=== PATIENT | male | born 1955 | race American Indian/Alaskan Native ===

== ENCOUNTER 2019-05-10 14:59 | Emergency (ER) | payer MEDICARE ==
[2019-05-10 15:36] LABS: Basophils % (Auto) 0.7 % (0.0-1.8); Eosinophils % (Auto) 0.6 % (0.0-4.3); Hematocrit 38.8 % (35.5-45.6); Hemoglobin 13.3 gm/dl (11.8-15.2); Lymphocytes # (Auto) 1.2 K/mm3 (1.2-5.4); Lymphocytes % (Auto) 21.6 % (13.4-35.0); Mean Corpuscular HGB Conc 34 % (32-34); Mean Corpuscular Volume 91 fl (84-94); Monocytes # (Auto) 0.4 K/mm3 (0.0-0.8); Monocytes % (Auto) 7.1 % (0.0-7.3); Platelet Count 261 K/mm3 (140-440); Red Blood Count 4.29 M/mm3 (3.65-5.03); Red Cell Distribution Width 14.6 % (13.2-15.2)
[2019-05-10 15:51] LABS: BUN/Creatinine Ratio 10; Blood Urea Nitrogen 11 mg/dL (9-20); Calcium 9.6 mg/dL (8.4-10.2); Hemolysis Index 9
--- NOTE | 2019-05-10 16:27 | Event Note ---
ED Screening Note Date of service: 05/10/19 Time: 15:21 ED Screening Note: 63 y/o male comes in for hearing voices telling him to harm This initial assessment/diagnostic orders/clinical plan/treatment(s) is/are subject to change based on patients health status, clinical progression and re-assessment by fellow clinical providers in the ED. Further treatment and workup at subsequent clinical providers discretion. Patient/guardian urged not to elope from the ED as their condition may be serious if not clinically assessed and managed. Initial orders include:
--- NOTE | 2019-05-10 17:25 | Emergency Department Report ---
ED Psych HPI - General Chief Complaint: Psych Stated Complaint: EVALUATION Time Seen by Provider: 05/10/19 15:46 Source: patient Mode of arrival: Ambulatory Limitations: No Limitations - History of Present Illness Initial Comments: 63-year-old male with a past medical history hypertension and schizophrenia presents to the hospital complains of psychosis and suicidal ideation with plan and attempt. Patient has been noncompliant with his psychiatric medication for at least 2 months due to failure to follow up. He says that yesterday he tried to drown himself in a pool but he floated to the top. He also has a plan to overdose currently. He reports a suicide attempt at age 36 when he attempted to jump off a bridge. He denies any physical complaints at this time. - Related Data Home Medications Medication Instructions Recorded Confirmed Last Taken Benztropine [Cogentin] 0.5 mg PO BID 02/20/16 02/20/16 Unknown [place] Carbonate 0 mg PO TID 02/20/16 02/20/16 Unknown Oxycodone HCl [OxyCONTIN ER TAB] 15 mg PO Q12HR 02/20/16 02/20/16 Unknown Quetiapine Fumarate [Seroquel] 100 mg PO QHS 02/20/16 02/20/16 Unknown amLODIPine [Norvasc] 10 mg PO QDAY 02/20/16 02/20/16 Unknown hydroCHLOROthiazide [HCTZ] 12.5 mg PO QDAY 02/20/16 02/20/16 Unknown Allergies Allergy/AdvReac Type Severity Reaction Status Date / Time No Known Allergies Allergy Unverified 02/19/16 23:12 ED Review of Systems ROS: Stated complaint: EVALUATION Other details as noted in HPI Comment: All other systems reviewed and negative ED Past Medical Hx - Past Medical History Previous Medical History?: Yes Hx Hypertension: Yes Hx Psychiatric Treatment: Yes (Schizophrenia) - Surgical History Past Surgical History?: Yes Additional Surgical History: "head surgery" - Social History Smoking Status: Never Smoker Substance Use Type: None - Medications Home Medications: Home Medications Medication Instructions Recorded Confirmed Last Taken Type Benztropine [Cogentin] 0.5 mg PO BID 02/20/16 02/20/16 Unknown History [place] Carbonate 0 mg PO TID 02/20/16 02/20/16 Unknown History Oxycodone HCl [OxyCONTIN ER TAB] 15 mg PO Q12HR 02/20/16 02/20/16 Unknown History Quetiapine Fumarate [Seroquel] 100 mg PO QHS 02/20/16 02/20/16 Unknown History amLODIPine [Norvasc] 10 mg PO QDAY 02/20/16 02/20/16 Unknown History hydroCHLOROthiazide [HCTZ] 12.5 mg PO QDAY 02/20/16 02/20/16 Unknown History ED Physical Exam - General Limitations: No Limitations - Other Other exam information: General: No limitations, patient is alert in no acute distress Head exam: Atraumatic, normocephalic Eyes exam: Normal appearance ENT: Moist mucous membrane Neck exam: Normal inspection, full range of motion, no meningismus nontender Respiratory exam: Clear to auscultation bilateral, no wheezes, rales, crackles Cardiovascular: Normal rate and rhythm, normal heart sounds Abdomen: Soft, nondistended, and nontender, with normal bowel sounds, no rebound, or guarding Extremity: Full range of motion normal inspection no deformity Back: Normal Inspection, full range of motion, no tenderness Neurologic: Alert, oriented x3, cranial nerves intact, no motor or sensory deficit Psychiatric: normal affect, normal mood Skin: Warm, dry, intact ED Course Vital Signs 05/10/19 05/10/19 15:07 17:26 Temperature 98.2 F 97.9 F Pulse Rate 102 H 71 Respiratory 13 18 Rate Blood Pressure 157/76 155/94 [Left] O2 Sat by Pulse 96 98 Oximetry ED Medical Decision Making - Lab Data Result diagrams: 05/10/19 15:19 05/10/19 15:19 Lab Results 05/10/19 05/10/19 05/10/19 Range/Units 15:19 15:19 15:19 WBC (4.5-11.0) K/mm3 RBC (3.65-5.03) M/mm3 Hgb (11.8-15.2) gm/dl Hct (35.5-45.6) % MCV (84-94) fl MCH (28-32) pg MCHC (32-34) % RDW (13.2-15.2) % Plt Count (140-440) K/mm3 Lymph % (Auto) (13.4-35.0) % [place] % (Auto) (0.0-7.3) % Eos % (Auto) (0.0-4.3) % Baso % (Auto) (0.0-1.8) % Lymph # (1.2-5.4) K/mm3 [place] # (0.0-0.8) K/mm3 Eos # (0.0-0.4) K/mm3 Baso # (0.0-0.1) K/mm3 Seg Neutrophils % (40.0-70.0) % Seg Neutrophils # (1.8-7.7) K/mm3 Sodium 141 (137-145) mmol/L Potassium 4.4 (3.6-5.0) mmol/L Chloride 102.3 (98-107) mmol/L Carbon Dioxide 24 (22-30) mmol/L Anion Gap 19 mmol/L BUN 11 (9-20) mg/dL Creatinine 1.1 (0.8-1.5) mg/dL Estimated GFR > 60 ml/min BUN/Creatinine Ratio 10 % Glucose 144 H (75-100) mg/dL Calcium 9.6 (8.4-10.2) mg/dL Urine Color (Yellow) Urine Turbidity (Clear) Urine pH (5.0-7.0) Ur Specific [place] (1.003-1.030) Urine Protein (Negative) mg/dL Urine Glucose (UA) (Negative) mg/dL Urine Ketones (Negative) mg/dL Urine Blood (Negative) Urine Nitrite (Negative) Urine Bilirubin (Negative) Urine Urobilinogen (<2.0) mg/dL Ur Leukocyte Esterase (Negative) Urine WBC (Auto) (0.0-6.0) /HPF Urine RBC (Auto) (0.0-6.0) /HPF Salicylates < 0.3 L (2.8-20.0) mg/dL Urine Opiates Screen Urine Methadone Screen Acetaminophen < 5.0 L (10.0-30.0) ug/mL Ur Barbiturates Screen Ur Phencyclidine Scrn Ur Amphetamines Screen U Benzodiazepines Scrn Urine Cocaine Screen U Marijuana (THC) Screen Drugs of Abuse Note Plasma/Serum Alcohol (0-0.07) % 05/10/19 05/10/19 05/10/19 Range/Units 15:19 15:19 Unknown WBC 5.7 (4.5-11.0) K/mm3 RBC 4.29 (3.65-5.03) M/mm3 Hgb 13.3 (11.8-15.2) gm/dl Hct 38.8 (35.5-45.6) % MCV 91 (84-94) fl MCH 31 (28-32) pg MCHC 34 (32-34) % RDW 14.6 (13.2-15.2) % Plt Count 261 (140-440) K/mm3 Lymph % (Auto) 21.6 (13.4-35.0) % [place] % (Auto) 7.1 (0.0-7.3) % Eos % (Auto) 0.6 (0.0-4.3) % Baso % (Auto) 0.7 (0.0-1.8) % Lymph # 1.2 (1.2-5.4) K/mm3 [place] # 0.4 (0.0-0.8) K/mm3 Eos # 0.0 (0.0-0.4) K/mm3 Baso # 0.0 (0.0-0.1) K/mm3 Seg Neutrophils % 70.0 (40.0-70.0) % Seg Neutrophils # 4.0 (1.8-7.7) K/mm3 Sodium (137-145) mmol/L Potassium (3.6-5.0) mmol/L Chloride (98-107) mmol/L Carbon Dioxide (22-30) mmol/L Anion Gap mmol/L BUN (9-20) mg/dL Creatinine (0.8-1.5) mg/dL Estimated GFR ml/min BUN/Creatinine Ratio % Glucose (75-100) mg/dL Calcium (8.4-10.2) mg/dL Urine Color Yellow (Yellow) Urine Turbidity Clear (Clear) Urine pH 7.0 (5.0-7.0) Ur Specific [place] 1.017 (1.003-1.030) Urine Protein <15 mg/dl (Negative) mg/dL Urine Glucose (UA) Neg (Negative) mg/dL Urine Ketones Neg (Negative) mg/dL Urine Blood Neg (Negative) Urine Nitrite Neg (Negative) Urine Bilirubin Neg (Negative) Urine Urobilinogen < 2.0 (<2.0) mg/dL Ur Leukocyte Esterase Neg (Negative) Urine WBC (Auto) < 1.0 (0.0-6.0) /HPF Urine RBC (Auto) 1.0 (0.0-6.0) /HPF Salicylates (2.8-20.0) mg/dL Urine Opiates Screen Urine Methadone Screen Acetaminophen (10.0-30.0) ug/mL Ur Barbiturates Screen Ur Phencyclidine Scrn Ur Amphetamines Screen U Benzodiazepines Scrn Urine Cocaine Screen U Marijuana (THC) Screen Drugs of Abuse Note Plasma/Serum Alcohol < 0.01 (0-0.07) % 05/10/19 Range/Units Unknown WBC (4.5-11.0) K/mm3 RBC (3.65-5.03) M/mm3 Hgb (11.8-15.2) gm/dl Hct (35.5-45.6) % MCV (84-94) fl MCH (28-32) pg MCHC (32-34) % RDW (13.2-15.2) % Plt Count (140-440) K/mm3 Lymph % (Auto) (13.4-35.0) % [place] % (Auto) (0.0-7.3) % Eos % (Auto) (0.0-4.3) % Baso % (Auto) (0.0-1.8) % Lymph # (1.2-5.4) K/mm3 [place] # (0.0-0.8) K/mm3 Eos # (0.0-0.4) K/mm3 Baso # (0.0-0.1) K/mm3 Seg Neutrophils % (40.0-70.0) % Seg Neutrophils # (1.8-7.7) K/mm3 Sodium (137-145) mmol/L Potassium (3.6-5.0) mmol/L Chloride (98-107) mmol/L Carbon Dioxide (22-30) mmol/L Anion Gap mmol/L BUN (9-20) mg/dL Creatinine (0.8-1.5) mg/dL Estimated GFR ml/min BUN/Creatinine Ratio % Glucose (75-100) mg/dL Calcium (8.4-10.2) mg/dL Urine Color (Yellow) Urine Turbidity (Clear) Urine pH (5.0-7.0) Ur Specific [place] (1.003-1.030) Urine Protein (Negative) mg/dL Urine Glucose (UA) (Negative) mg/dL Urine Ketones (Negative) mg/dL Urine Blood (Negative) Urine Nitrite (Negative) Urine Bilirubin (Negative) Urine Urobilinogen (<2.0) mg/dL Ur Leukocyte Esterase (Negative) Urine WBC (Auto) (0.0-6.0) /HPF Urine RBC (Auto) (0.0-6.0) /HPF Salicylates (2.8-20.0) mg/dL Urine Opiates Screen Presumptive negative Urine Methadone Screen Presumptive negative Acetaminophen (10.0-30.0) ug/mL Ur Barbiturates Screen Presumptive negative Ur Phencyclidine Scrn Presumptive negative Ur Amphetamines Screen Presumptive negative U Benzodiazepines Scrn Presumptive negative Urine Cocaine Screen Presumptive negative U Marijuana (THC) Screen Presumptive negative Drugs of Abuse Note Disclamer Plasma/Serum Alcohol (0-0.07) % - Medical Decision Making 1013 and transfer form signed. Pt medically cleared for psych admission - Differential Diagnosis psychosis, schizophrenia, noncompliance, suicidal, homicidal Critical Care Time: No Critical care attestation.: If time is entered above; I have spent that time in minutes in the direct care of this critically ill patient, excluding procedure time. ED Disposition Clinical Impression: Psychosis, Acute schizophrenia, Noncompliance with medication regimen, Planning to commit suicide, Medical clearance for psychiatric admission Disposition: [id number] PSY HOSP/PSY UNIT Is pt being admited?: No Condition: Stable Time of Disposition: 19:01
[2019-05-10 17:31] LABS: Bilirubin,Urine NEG (Negative); Blood,Urine NEG (Negative); Color,Urine Yellow (Yellow); Protein,Urine <15 mg/dL mg/dL (Negative); Urobilinogen,Urine < 2.0 mg/dL (<2.0); WBC,Urine < 1.0 /HPF (0.0-6.0)
[2019-05-10 17:40] LABS: Amphetamine Screen,Urine PRESUMPTIVE NEGATIVE; Benzodiazepines Screen,Urine PRESUMPTIVE NEGATIVE; Cannabinoid Screen,Urine PRESUMPTIVE NEGATIVE; Cocaine Screen,Urine PRESUMPTIVE NEGATIVE; Methadone Screen,Urine PRESUMPTIVE NEGATIVE; Opiate Screen,Urine PRESUMPTIVE NEGATIVE
[2019-05-10 20:16] VITALS: BP 162/81
[2019-05-10] MEDS ORDERED: HCTZ ONE (21:06)
[2019-05-10] MEDS ORDERED: NORVASC ONE (21:07)
[2019-05-11] MEDS ORDERED: NORVASC PO SCH ×2 (10:00)
[2019-05-11] MEDS ORDERED: HCTZ PO SCH ×2 (10:00)
== END 2019-05-10 23:40 ==
LOC: ED 14:59
DX: T14.91XA Suicide attempt, initial encounter (principal); F23 Brief psychotic disorder; F29 Unspecified psychosis not due to a substance or known physiological condition; I10 Essential (primary) hypertension; Z91.14 Patient's other noncompliance with medication regimen; Z98.890 Other specified postprocedural states; X71.1XXA Intentional self-harm by drowning and submersion while in swimming pool, initial encounter; Y93.89 Activity, other specified; Y92.89 Other specified places as the place of occurrence of the external cause; Y99.8 Other external cause status
CPT/HCPCS: 36415; 80048; 80307; 81001; 85025; 99284; G0480; 80320

== ENCOUNTER 2019-05-10 22:30 | Inpatient (IN) | payer MEDICARE ==
[2019-05-10] MEDS ORDERED: ATIVAN IM PRN (22:55)
[2019-05-10] MEDS ORDERED: HALDOL IM PRN (22:58)
--- NOTE | 2019-05-11 07:58 | History and Physical Report ---
GP History & Physical - History of Present Illness Date of admission: 05/10/19 Date of Examination: 05/11/19 Reason for Admission: Danger to self, Psychopathology interference Chief Complaint: Suicidal History of Present Illness: The patient is a 63yo single disabled AAM with history of Paranoid Schizophrenia. He self presented to the ED last night with complaining of being depressed, suicidal and tormented by voices that are telling him to kill himself. In my interview with him, he reports that he has not taken his medications for over a month for no particular reasons. He started hearing voices a few days aft er he stopped taking his medications. The voices have progressed in intensity and frequency. The voices tell him to kill himself. He started feeling depressed about 2 weeks ago and has been contemplating suicide over one week now. He became concerned for his own safety and decided to ride the Bus to the ED to ask for help. He does not know the names of his medications, states that he gets them at the [facility] in [place] and indicates that he cannot tolerate Haldol - makes him dizzy. He denies side effects to his medications and finds them beneficial. He wants to resume them or take similar medications to keep the voices away. He denies illicit dug use. Legal Status: Voluntary Patient Problems: Current Active Problems Paranoid schizophrenia (Acute) Reaction to Hospitalization: Accepting Substance History - Substance History Drug Use: none Hx Tobacco Use: No Alcohol Use: No Past psychiatric history - Past Medical History Past Medical History: No medical history - past Psychiatric treatment and history Psych: Schizophrenia psychiatric treatment history: 5 previous psych admissions. Last admitted one year ago at [facility] No suicide attempt No established outpatient care at present time. - Social History Social history: single (lives with brother, disabled, attended some College, no legal problems and access to guns) Review of Systems All systems: negative Psychiatric: hallucinations, depression Results - Results Labs/Vitals: Last Vital Signs Temp 98 F 05/11/19 00:00 Pulse 69 05/11/19 00:00 Resp 16 05/11/19 00:00 BP 169/90 05/11/19 00:00 Pulse Ox 97 05/11/19 00:00 Physical Examination - Constitutional Vitals: Vital Signs Temp Pulse Resp BP Pulse Ox 98 F 69 16 169/90 97 05/11/19 00:00 05/11/19 00:00 05/11/19 00:00 05/11/19 00:00 05/11/19 00:00 Temperature -Last 24 Hours Temperature 98 F General appearance: Present: no acute distress, well-nourished - EENT Eyes: Present: PERRL, EOM intact, irregular pupil ENT: clear oral mucosa - Neck Neck: Present: supple, normal ROM - Respiratory Respiratory effort: normal Mental Status Exam - Vital signs Last Vital Signs Temp 98 F 05/11/19 00:00 Pulse 69 05/11/19 00:00 Resp 16 05/11/19 00:00 BP 169/90 05/11/19 00:00 Pulse Ox 97 05/11/19 00:00 - Exam Orientation: time, place, person Affect: depressed Mood: calm, congruent with affect Thought Process: Intact Perceptions: command, hallucinations Speech: normal rate and pattern Concentration: focused Motor activity: normal Level of consciousness: alert Memory: Intact Sleep Symptoms: None Interaction: cooperative, pleasant Assessment and Plan - Psychiatric problem (1) Paranoid schizophrenia Current Visit: Yes Status: Acute plan to address problem: Patient will be admitted for inpatient psychiatric evaluation, medication adjustment and close monitoring The patient's behavior, mood, sleep and appetite will be closely monitored. Patient will be enrolled in individual and group therapeutic sessions and encouraged to attend. Patient will be provided with a safe and structured environment. Patient's physical health needs will be addressed by the Hospitalist. Social Assessment will be completed and the Radiator Core Tester will work with patient and family to ensure a suitable and safe disposition Medication adjustment will be made as clinically indicated The patient agreed on the treatment plan, understood the risk, benefit, alternative treatment, potential consequence of no treatment, and gave informed consent. Physician Certification - Certification Statement Physician Certification Statement: This is an acknowledgement statement that JOSE ELMORE is a 63 year old M who requires inpatient psychiatric admission for treatment which could reasonably be expected to improve the patient's condition for Paranoid Schizophrenia Estimated period of time patient will need to remain in the hospital: 7 days Plan for post-hospital care: Outpatient care
[2019-05-11] MEDS ORDERED: GEODON IM PRN (08:31)
[2019-05-11] MEDS: RisperDAL PO SCH ×2 (10:37→21:27)
--- NOTE | 2019-05-12 08:53 | Progress Note ---
Subjective Date of service: 05/12/19 Principal diagnosis: Paranoid Schizophrenia Subjective Comment: Nursing staff reports that patient is withdrawn, isolates and observed to be talking to himself. Patient reports that he continues to experience auditory hallucinations. The voices tell him to kill himself. He endorses being suicidal but denies plans/intent. He is compliant with medications and denies side effects. Objective - Criteria for Continued Treatment Criteria for Continued Treatment: Improving Level of Functioning, Stablizing Level of Functioning, Improving Emotional/Socia - Mental Status Mental Status: Alert - Objective Observation Participation Level: Moderate Assessment and Plan - Patient Problems (1) Paranoid schizophrenia Current Visit: Yes Status: Acute Plan to address problem: Patient will be admitted for inpatient psychiatric evaluation, medication adjustment and close monitoring The patient's behavior, mood, sleep and appetite will be closely monitored. Patient will be enrolled in individual and group therapeutic sessions and encouraged to attend. Patient will be provided with a safe and structured environment. Patient's physical health needs will be addressed by the Hospitalist. Social Assessment will be completed and the Mens Locker Room Attendant will work with patient and family to ensure a suitable and safe disposition Medication adjustment will be made as clinically indicated Patient was started on Risperidone 1mg bid yesterday The patient agreed on the treatment plan, understood the risk, benefit, alternative treatment, potential consequence of no treatment, and gave informed consent.
[2019-05-12] MEDS: RisperDAL PO SCH ×2 (09:36→22:11)
[2019-05-13] MEDS: RisperDAL PO SCH (09:31)
--- NOTE | 2019-05-13 10:15 | Progress Note ---
Subjective Date of service: 05/13/19 Principal diagnosis: Paranoid Schizophrenia Subjective Comment: Patient reports that he continues to experience auditory hallucinations. The voices tell him to kill himself. He endorses being suicidal but denies plans/intent. He is compliant with medications and denies side effects. Objective - Criteria for Continued Treatment Criteria for Continued Treatment: Improving Level of Functioning, Stablizing Level of Functioning, Improving Emotional/Socia - Mental Status Mental Status: Alert - Objective Observation Participation Level: Moderate Assessment and Plan - Patient Problems (1) Paranoid schizophrenia Current Visit: Yes Status: Acute Plan to address problem: Patient will be admitted for inpatient psychiatric evaluation, medication adjustment and close monitoring The patient's behavior, mood, sleep and appetite will be closely monitored. Patient will be enrolled in individual and group therapeutic sessions and encouraged to attend. Patient will be provided with a safe and structured environment. Patient's physical health needs will be addressed by the Hospitalist. Social Assessment will be completed and the Veterinary Medicine Doctor will work with patient and family to ensure a suitable and safe disposition Medication adjustment will be made as clinically indicated Continue Risperidone 1mg bid The patient agreed on the treatment plan, understood the risk, benefit, alternative treatment, potential consequence of no treatment, and gave informed consent.
[2019-05-14] MEDS: RisperDAL PO SCH ×3 (00:38→21:56)
[2019-05-15] MEDS: RisperDAL PO SCH ×2 (10:09→21:45)
--- NOTE | 2019-05-15 19:21 | Progress Note ---
Subjective Date of service: 05/15/19 Principal diagnosis: Paranoid Schizophrenia Subjective Comment: Patient reports that he continues to experience auditory hallucinations. The voices tell him to kill himself. He endorses being suicidal but denies plans/intent. He is compliant with medications and denies side effects. Objective - Criteria for Continued Treatment Criteria for Continued Treatment: Improving Level of Functioning, Stablizing Level of Functioning, Improving Emotional/Socia - Mental Status Mental Status: Alert - Objective Observation Participation Level: Full Assessment and Plan - Patient Problems (1) Paranoid schizophrenia Current Visit: Yes Status: Acute Plan to address problem: Patient will be admitted for inpatient psychiatric evaluation, medication adjustment and close monitoring The patient's behavior, mood, sleep and appetite will be closely monitored. Patient will be enrolled in individual and group therapeutic sessions and encouraged to attend. Patient will be provided with a safe and structured environment. Patient's physical health needs will be addressed by the Hospitalist. Social Assessment will be completed and the Sand Shoveler will work with patient and family to ensure a suitable and safe disposition Medication adjustment will be made as clinically indicated Continue Risperidone 1mg bid The patient agreed on the treatment plan, understood the risk, benefit, alternative treatment, potential consequence of no treatment, and gave informed consent.
--- NOTE | 2019-05-16 09:53 | Progress Note ---
Subjective Date of service: 05/16/19 Principal diagnosis: Paranoid Schizophrenia Subjective Comment: Patient reports improving mood. He denies suicidal or homicidal thoughts. He denies hallucinations or paranoia. He is compliant with medications and denies side effects. Objective - Criteria for Continued Treatment Criteria for Continued Treatment: Improving Level of Functioning, Stablizing Level of Functioning, Improving Emotional/Socia - Mental Status Mental Status: Alert - Objective Observation Participation Level: Full Assessment and Plan - Patient Problems (1) Paranoid schizophrenia Current Visit: Yes Status: Acute Plan to address problem: Patient will be admitted for inpatient psychiatric evaluation, medication adjustment and close monitoring The patient's behavior, mood, sleep and appetite will be closely monitored. Patient will be enrolled in individual and group therapeutic sessions and encouraged to attend. Patient will be provided with a safe and structured environment. Patient's physical health needs will be addressed by the Hospitalist. Social Assessment will be completed and the Director Integrated will work with patient and family to ensure a suitable and safe disposition Medication adjustment will be made as clinically indicated Continue Risperidone 1mg bid The patient agreed on the treatment plan, understood the risk, benefit, alternative treatment, potential consequence of no treatment, and gave informed consent. Will discharge in am tomorrow if he continues to do well.
[2019-05-16] MEDS: RisperDAL PO SCH ×2 (10:40→21:01)
[2019-05-16 18:30] VITALS: BP 151/79
--- NOTE | 2019-05-17 09:05 | Discharge Summary ---
Providers - Providers Date of Admission: 05/11/19 00:09 Date of discharge: 05/17/19 Attending physician: HANNA PROCTOR MD 05/10/19 22:37 Consult to Physician [CONS] Routine Comment: Consulting Provider: JESSICA TALBOT Physician Instructions: Reason For Exam: H & P for psych admission Primary care physician: DEE MUÑIZ Hospitalization Reason for admission: depressed, suicidal and hearing voices telling him to kill himself Admitting Diagnosis: F20.0 - PARANOID SCHIZOPHRENIA Condition: Stable Hospital course: The patient was provided inpatient psychiatric treatment with safe and supportive environment, group therapy, individual counseling, psychiatric medication, medication adjustment, adverse effect monitor, medical evaluation, medical treatment, social service assessment, family/social support meeting, placement assessment and psycho-education. The patients mood, anxiety, thoughts, stress management skill, cognition, impulse/anger control, motivation, understanding of disease, compliance to treatment and appreciation on family/social support are improved and stabilized. At the time of discharge, the patient had no suicidal ideas, no homicidal ideas, no aggressive thoughts, no endangering behavior and no debilitating adverse effects. The patient agreed on the treatment plan, understood the risk, benefit, alternative treatment, potential consequence of no treatment, and gave informed consent. The patient was advised to be compliant with medications, not to use drugs and not to drink alcohol. The patient understands that if suicidal ideas, homicidal ideas, or any endangering thoughts arise, the patient should immediately seek for emergent assistance including but not limited to crisis hot line and emergency room. Follow up with out-patient Psychiatrist and PCP within 14 - 21 days of discharge. Disposition: - TO HOME OR SELFCARE Time spent for discharge: 35 mins Allergies/Adverse Reactions: Allergies No Known Allergies Allergy (Unverified 02/19/16 23:12) Vital Signs: Last Vital Signs Temp 97.6 F 05/16/19 20:06 Pulse 77 05/16/19 20:06 Resp 18 05/16/19 20:06 BP 151/79 05/16/19 09:45 Pulse Ox 95 05/16/19 20:06 - Discharge Diagnoses (1) Paranoid schizophrenia Status: Acute Core Measure Documentation - Palliative Care Palliative Care/ Comfort Measures: Not Applicable - Core Measures Any of the following diagnoses?: none - VTE Discharge Requirements Deep Vein Thrombosis/Pulmonary Embolism Present on Admission: No Has pt received <5 days of overlap therapy or INR<2.0: No Anticoagulant overlap therapy prescribed at discharge: No Contraindication No Overlap Therapy order at DC: Not Indicated Exam - Constitutional Vitals: Temp Pulse Resp BP Pulse Ox 97.6 F 77 18 151/79 95 05/16/19 20:06 05/16/19 20:06 05/16/19 20:06 05/16/19 09:45 05/16/19 20:06 General appearance: Present: no acute distress, well-nourished - EENT Eyes: Present: PERRL, EOM intact ENT: hearing intact, clear oral mucosa - Neck Neck: Present: supple, normal ROM - Respiratory Respiratory effort: normal Plan Activity: no restrictions Weight Bearing Status: Full Weight Bearing Diet: regular Follow up with: DEE MUÑIZ MD [Primary Care Provider] - 7 Days Prescriptions: risperiDONE [RisperDAL] 1 mg PO BID 30 Days #30 tablet
[2019-05-17] MEDS: RisperDAL PO SCH (09:21)
== END 2019-05-17 16:43 | disposition home or self-care (01) | DRG 885 ==
LOC: UNDOADMIN 22:30 → 3A 22:30 → 5A 05-11 00:09
PROVIDERS: ADMIT Psychiatry & Neurology Psychiatry; ATTEND Psychiatry & Neurology Psychiatry
DX: F23 Brief psychotic disorder (principal); F32.3 Major depressive disorder, single episode, severe with psychotic features
CPT/HCPCS: 36415; 80048; 80307; 80320; 81001; 85025; G0378; G0480

== ENCOUNTER 2019-06-02 19:28 | Emergency (ER) | payer MEDICARE ==
--- NOTE | 2019-06-02 19:59 | Event Note ---
ED Screening Note ED Screening Note: states he has SI and HI states he has felt this way for quite awhile states he would lay on a railroad track denies having any weapons he says he would stab others with a knife PMHx HTN, bipolar, schizophrenia states he takes his medicine when he thinks of it +smoker +drinker denies drug use This initial assessment/diagnostic orders/clinical plan/treatment(s) is/are subject to change based on patients health status, clinical progression and re- assessment by fellow clinical providers in the ED. Further treatment and workup at subsequent clinical providers discretion. Patient/guardian urged not to elope from the ED as their condition may be serious if not clinically assessed and managed. Initial orders include: psych protocol
[2019-06-02 20:13] LABS: Basophils % (Auto) 0.8 % (0.0-1.8); Eosinophils # (Auto) 0.2 K/mm3 (0.0-0.4); Eosinophils % (Auto) 2.9 % (0.0-4.3); Hematocrit 38.4 % (35.5-45.6); Hemoglobin 13.1 gm/dl (11.8-15.2); Lymphocytes # (Auto) 1.4 K/mm3 (1.2-5.4); Lymphocytes % (Auto) 26.5 % (13.4-35.0); Mean Corpuscular HGB Conc 34 % (32-34); Mean Corpuscular Volume 91 fl (84-94); Monocytes # (Auto) 0.5 K/mm3 (0.0-0.8); Monocytes % (Auto) 8.4 % (0.0-7.3); Platelet Count 286 K/mm3 (140-440); Red Blood Count 4.21 M/mm3 (3.65-5.03); Red Cell Distribution Width 15.2 % (13.2-15.2)
--- NOTE | 2019-06-02 20:22 | Emergency Department Report ---
ED Psych HPI - General Chief Complaint: Psych Stated Complaint: SUICIDAL Time Seen by Provider: 06/02/19 20:01 Source: patient Mode of arrival: Ambulatory - History of Present Illness Initial Comments: Patient is a 63-year-old mellitus emergency room with complaints of suicidal i deation with a plan. Patient states she would jump off a bridge. He states depressed as well as having audiovisual hallucinations. Patient is also complaining of racing thoughts. Patient states that this many times. Patient states depression and symptoms are worsening. MD Complaint: suicidal ideation, feels depressed -: Sudden Associated Psychiatric Symptoms: depression, suicidal ideation, racing thoughts, auditory hallucinations, visual hallucinations History of same: Yes Quality: constant Improves With: none Worsens With: none Context: not taking psychiatric, significant life stressor Associated Symptoms: denies: confusion, headache, shortness of breath, nausea, vomiting, syncope, insomnia If Self Harm: admits thoughts of, has plan - Related Data Home Medications Medication Instructions Recorded Confirmed Last Taken Benztropine [Cogentin] 0.5 mg PO BID 02/20/16 06/02/19 Unknown [place] Carbonate 0 mg PO TID 02/20/16 06/02/19 Unknown Oxycodone HCl [oxyCONTIN ER] 15 mg PO Q12HR 02/20/16 06/02/19 Unknown amLODIPine [Norvasc] 10 mg PO QDAY 02/20/16 06/02/19 Unknown hydroCHLOROthiazide [HCTZ] 12.5 mg PO QDAY 02/20/16 06/02/19 Unknown Previous Rx's Medication Instructions Recorded Last Taken Type risperiDONE [RisperDAL] 1 mg PO BID 30 Days #30 tablet 05/17/19 Unknown Rx Allergies Allergy/AdvReac Type Severity Reaction Status Date / Time No Known Allergies Allergy Unverified 02/19/16 23:12 ED Review of Systems ROS: Stated complaint: SUICIDAL Other details as noted in HPI Constitutional: denies: chills, fever Eyes: denies: eye pain, eye discharge, vision change ENT: denies: ear pain, throat pain Respiratory: denies: cough, shortness of breath, wheezing Cardiovascular: denies: chest pain, palpitations Endocrine: no symptoms reported Gastrointestinal: denies: abdominal pain, nausea, diarrhea Genitourinary: denies: urgency, dysuria Musculoskeletal: denies: back pain, joint swelling, arthralgia Skin: denies: rash, lesions Neurological: denies: headache, weakness, paresthesias Psychiatric: depression, auditory hallucinations, visual hallucinations, suicidal thoughts. denies: anxiety Hematological/Lymphatic: denies: easy bleeding, easy bruising ED Past Medical Hx - Past Medical History Previous Medical History?: Yes Hx Hypertension: Yes Hx Congestive Heart Failure: No Hx Diabetes: No Hx Renal Disease: No Hx Arthritis: No Hx Seizures: No Hx Psychiatric Treatment: Yes (Schizophrenia) Hx Asthma: No Hx COPD: No Hx Dementia: No - Surgical History Past Surgical History?: Yes Hx Cholecystectomy: No Hx Appendectomy: No Additional Surgical History: "head surgery" - Family History Family history: no significant - Social History Smoking Status: Current Every Day Smoker Substance Use Type: None - Medications Home Medications: Home Medications Medication Instructions Recorded Confirmed Last Taken Type Benztropine [Cogentin] 0.5 mg PO BID 02/20/16 06/02/19 Unknown History [place] Carbonate 0 mg PO TID 02/20/16 06/02/19 Unknown History Oxycodone HCl [oxyCONTIN ER] 15 mg PO Q12HR 02/20/16 06/02/19 Unknown History amLODIPine [Norvasc] 10 mg PO QDAY 02/20/16 06/02/19 Unknown History hydroCHLOROthiazide [HCTZ] 12.5 mg PO QDAY 02/20/16 06/02/19 Unknown History risperiDONE [RisperDAL] 1 mg PO BID 30 Days #30 tablet 05/17/19 06/02/19 Unknown Rx ED Physical Exam - General Limitations: No Limitations General appearance: alert, in no apparent distress - Head Head exam: Present: atraumatic, normocephalic - Eye Eye exam: Present: normal appearance - ENT ENT exam: Present: mucous membranes moist - Neck Neck exam: Present: normal inspection - Respiratory Respiratory exam: Present: normal lung sounds bilaterally. Absent: respiratory distress - Cardiovascular Cardiovascular Exam: Present: regular rate, normal rhythm. Absent: systolic murmur, diastolic murmur, rubs, gallop - GI/Abdominal GI/Abdominal exam: Present: soft, normal bowel sounds - Rectal Rectal exam: Present: deferred - Extremities Exam Extremities exam: Present: normal inspection - Back Exam Back exam: Present: normal inspection - Neurological Exam Neurological exam: Present: alert, oriented X3 - Psychiatric Psychiatric exam: Present: depressed, flat affect, suicidal ideation - Skin Skin exam: Present: warm, dry, intact, normal color. Absent: rash ED Course Vital Signs 06/02/19 20:21 Temperature 98.2 F Pulse Rate 84 Respiratory 18 Rate Blood Pressure 165/101 [Left] O2 Sat by Pulse 97 Oximetry - Reevaluation(s) Reevaluation #1: Initial evaluation done. Patient placed on a 1013. 06/02/19 20:21 Reevaluation #2: Patient is on a 1013 is medically cleared. Patient will remain in the ER to accept him to appropriate psychiatric facility. 06/02/19 22:23 ED Medical Decision Making - Lab Data Result diagrams: 06/02/19 20:02 06/02/19 20:02 - Medical Decision Making Patient is a 63-year-old male presents emergency room with complaints of depression and suicidal ideations. Patient is medically clear. Patient placed on 1013 immediately. Patient's labs unremarkable. - Differential Diagnosis depression. Suicidal ideation. Critical care attestation.: If time is entered above; I have spent that time in minutes in the direct care of this critically ill patient, excluding procedure time. ED Disposition Clinical Impression: Suicidal ideations Disposition: [id number]/TX-[id number] PSY HOSP/PSY UNIT Is pt being admited?: No Does the pt Need Aspirin: No Condition: Stable Additional Instructions: Patient is medically cleared and will remain on a 1013 Referrals: MEGGAN LONGORIA [Other] - 3-5 Days Time of Disposition: 22:25
[2019-06-02 20:36] LABS: Alanine Aminotransferase 11 units/L (7-56); Albumin 4.2 g/dL (3.9-5); BUN/Creatinine Ratio 8; Blood Urea Nitrogen 9 mg/dL (9-20); Calcium 8.5 mg/dL (8.4-10.2); Hemolysis Index 9
[2019-06-02] MEDS ORDERED: ATIVAN ONE (20:50)
[2019-06-02] MEDS ORDERED: HCTZ ONE (20:52)
[2019-06-02] MEDS ORDERED: NORVASC ONE (20:52)
[2019-06-02] MEDS ORDERED: ATIVAN PO PRN (20:57)
[2019-06-02] MEDS ORDERED: NORVASC PO SCH (21:00)
[2019-06-02] MEDS ORDERED: HCTZ PO SCH (21:00)
[2019-06-03 02:36] LABS: Bilirubin,Urine NEG (Negative); Blood,Urine NEG (Negative); Color,Urine Straw (Yellow); Protein,Urine <15 mg/dL mg/dL (Negative); RBC,Urine < 1.0 /HPF (0.0-6.0); Urobilinogen,Urine < 2.0 mg/dL (<2.0); WBC,Urine < 1.0 /HPF (0.0-6.0)
[2019-06-03 02:49] LABS: Amphetamine Screen,Urine PRESUMPTIVE NEGATIVE; Benzodiazepines Screen,Urine PRESUMPTIVE NEGATIVE; Cannabinoid Screen,Urine PRESUMPTIVE NEGATIVE; Cocaine Screen,Urine PRESUMPTIVE NEGATIVE; Methadone Screen,Urine PRESUMPTIVE NEGATIVE; Opiate Screen,Urine PRESUMPTIVE NEGATIVE
[2019-06-03 07:46] VITALS: BP 143/77
[2019-06-03] MEDS ORDERED: HCTZ PO SCH (10:00)
[2019-06-03] MEDS ORDERED: NORVASC PO SCH (10:00)
== END 2019-06-03 09:01 | disposition home or self-care (01) ==
LOC: EEVIPCON 19:28 → ED 19:28
DX: F32.9 Major depressive disorder, single episode, unspecified (principal); F20.9 Schizophrenia, unspecified; I10 Essential (primary) hypertension; F17.200 Nicotine dependence, unspecified, uncomplicated; Z98.890 Other specified postprocedural states; Z79.899 Other long term (current) drug therapy
CPT/HCPCS: 36415; 80053; 80178; 80307; 81001; 85025; 93005; 93010; 99284; G0480; 80320

== ENCOUNTER 2019-06-03 06:34 | Inpatient (IN) | payer MEDICARE ==
[2019-06-03] MEDS ORDERED: HALDOL IM PRN (07:12)
[2019-06-03] MEDS ORDERED: ATIVAN IM PRN (08:30)
[2019-06-03 10:44] LABS: Basophils % (Auto) 0.8 % (0.0-1.8); Eosinophils # (Auto) 0.2 K/mm3 (0.0-0.4); Eosinophils % (Auto) 4.2 % (0.0-4.3); Hematocrit 42.6 % (35.5-45.6); Hemoglobin 14.6 gm/dl (11.8-15.2); Lymphocytes # (Auto) 1.2 K/mm3 (1.2-5.4); Lymphocytes % (Auto) 27.6 % (13.4-35.0); Mean Corpuscular HGB Conc 34 % (32-34); Mean Corpuscular Volume 91 fl (84-94); Monocytes # (Auto) 0.3 K/mm3 (0.0-0.8); Monocytes % (Auto) 6.8 % (0.0-7.3); Platelet Count 294 K/mm3 (140-440); Red Blood Count 4.69 M/mm3 (3.65-5.03); Red Cell Distribution Width 15.2 % (13.2-15.2)
[2019-06-03 11:17] LABS: Alanine Aminotransferase 10 units/L (7-56); Albumin 4.2 g/dL (3.9-5); BUN/Creatinine Ratio 8; Blood Urea Nitrogen 7 mg/dL (9-20); Calcium 9.3 mg/dL (8.4-10.2); Hemolysis Index 11; LDL Cholesterol,Direct 60 mg/dL (50-130)
[2019-06-03 11:48] LABS: Chol/HDL Ratio 2.21 %; HDL Cholesterol 56 mg/dL (40-59)
--- NOTE | 2019-06-03 14:54 | History and Physical Report ---
GP History & Physical - History of Present Illness Date of admission: 06/03/19 Date of Examination: 06/03/19 Reason for Admission: Danger to self, Impaired reality testing, Psychopathology interference, Unable to care for self Chief Complaint: I am hearing voices telling me to kill myself History of Present Illness: The patient is a 63yo single disabled AAM with history of Paranoid Schizophrenia. He self presents with auditory hallucinations of voices telling him to kill himself, depressed mood, suicidal thoughts with plans to jump off the bridge. The patient is known here - was an inpatient from 05/11/19 to 05/17/19. He presented with same symptoms and responded to Risperidone. He reports taking the Risperidone as prescribed and denies abusing substances. He endorses feeling paranoid. Legal Status: Voluntary Reaction to Hospitalization: Accepting Substance History - Substance History Drug Use: none Hx Tobacco Use: No Alcohol Use: No Past psychiatric history - Past Medical History Past Medical History: hypertension - past Psychiatric treatment and history Psych: Depression, Schizophrenia psychiatric treatment history: 5 previous psych admissions. Last admitted one year ago at [facility] No suicide attempt No established outpatient care at present time. - Social History Social history: single (lives with brother, disabled, attended some College, no legal problems and access to guns) Review of Systems All systems: negative Psychiatric: suicidal ideation, hallucinations, paranoia, depression Results - Results Labs/Vitals: Laboratory Last Values WBC 4.2 K/mm3 (4.5-11.0) L 06/03/19 10:28 RBC 4.69 M/mm3 (3.65-5.03) 06/03/19 10:28 Hgb 14.6 gm/dl (11.8-15.2) 06/03/19 10:28 Hct 42.6 % (35.5-45.6) 06/03/19 10:28 MCV 91 fl (84-94) 06/03/19 10:28 MCH 31 pg (28-32) 06/03/19 10:28 MCHC 34 % (32-34) 06/03/19 10:28 RDW 15.2 % (13.2-15.2) 06/03/19 10:28 Plt Count 294 K/mm3 (140-440) 06/03/19 10:28 Lymph % (Auto) 27.6 % (13.4-35.0) 06/03/19 10:28 [place] % (Auto) 6.8 % (0.0-7.3) 06/03/19 10:28 Eos % (Auto) 4.2 % (0.0-4.3) 06/03/19 10:28 Baso % (Auto) 0.8 % (0.0-1.8) 06/03/19 10:28 Lymph # 1.2 K/mm3 (1.2-5.4) 06/03/19 10:28 [place] # 0.3 K/mm3 (0.0-0.8) 06/03/19 10:28 Eos # 0.2 K/mm3 (0.0-0.4) 06/03/19 10:28 Baso # 0.0 K/mm3 (0.0-0.1) 06/03/19 10:28 Seg Neutrophils % 60.6 % (40.0-70.0) 06/03/19 10:28 Seg Neutrophils # 2.5 K/mm3 (1.8-7.7) 06/03/19 10:28 Sodium 140 mmol/L (137-145) 06/03/19 10:28 Potassium 4.8 mmol/L (3.6-5.0) 06/03/19 10:28 Chloride 103.6 mmol/L (98-107) 06/03/19 10:28 Carbon Dioxide 25 mmol/L (22-30) 06/03/19 10:28 16 mmol/L 06/03/19 10:28 BUN 7 mg/dL (9-20) L 06/03/19 10:28 0.9 mg/dL (0.8-1.5) 06/03/19 10:28 Estimated GFR > 60 ml/min 06/03/19 10:28 8 % 06/03/19 10:28 Glucose 103 mg/dL (75-100) H 06/03/19 10:28 5.6 % (4-6) 06/03/19 10:28 Calcium 9.3 mg/dL (8.4-10.2) 06/03/19 10:28 0.40 mg/dL (0.1-1.2) 06/03/19 10:28 AST 16 units/L (5-40) 06/03/19 10:28 ALT 10 units/L (7-56) 06/03/19 10:28 96 units/L (35-129) 06/03/19 10:28 7.4 g/dL (6.3-8.2) 06/03/19 10:28 4.2 g/dL (3.9-5) 06/03/19 10:28 1.3 % 06/03/19 10:28 Triglycerides 57 mg/dL (2-149) 06/03/19 10:28 Cholesterol 124 mg/dL (50-199) 06/03/19 10:28 60 mg/dL (50-130) 06/03/19 10:28 56 mg/dL (40-59) 06/03/19 10:28 2.21 % 06/03/19 10:28 TSH 0.253 mlU/mL (0.270-4.200) L 06/03/19 10:28 Last Vital Signs Temp 98.1 F 06/03/19 09:20 Pulse 76 06/03/19 09:20 Resp 20 06/03/19 09:20 BP 152/100 06/03/19 09:20 Pulse Ox 98 06/03/19 09:20 Physical Examination - Constitutional Vitals: Vital Signs Temp Pulse Resp BP Pulse Ox 98.1 F 76 20 152/100 98 06/03/19 09:20 06/03/19 09:20 06/03/19 09:20 06/03/19 09:20 06/03/19 09:20 Temperature -Last 24 Hours Temperature 98.1 F General appearance: Present: no acute distress, disheveled - EENT Eyes: Present: PERRL, EOM intact ENT: hearing intact, clear oral mucosa - Neck Neck: Present: supple, normal ROM - Respiratory Respiratory effort: normal Mental Status Exam - Vital signs Last Vital Signs Temp 98.1 F 06/03/19 09:20 Pulse 76 06/03/19 09:20 Resp 20 06/03/19 09:20 BP 152/100 06/03/19 09:20 Pulse Ox 98 06/03/19 09:20 - Exam Orientation: time, place, person Affect: flat, depressed Mood: congruent with affect Thought content: delusions, paranoia Thought Process: Intact Perceptions: auditory, command, hallucinations Speech: normal rate and pattern Concentration: distractible Motor activity: lethargic Level of consciousness: alert Memory: Intact Sleep Symptoms: Insomnia Interaction: cooperative Assessment and Plan - Psychiatric problem (1) Paranoid schizophrenia Current Visit: No Status: Acute plan to address problem: Patient will be admitted for inpatient psychiatric evaluation, medication adjustment and close monitoring The patient's behavior, mood, sleep and appetite will be closely monitored. Patient will be enrolled in individual and group therapeutic sessions and encouraged to attend. Patient will be provided with a safe and structured environment. Patient's physical health needs will be addressed by the Hospitalist. Social Assessment will be completed and the Slp will work with patient and family to ensure a suitable and safe disposition Medication adjustment will be made as clinically indicated The patient agreed on the treatment plan, understood the risk, benefit, alternative treatment, potential consequence of no treatment, and gave informed consent. (2) Suicidal ideations Current Visit: No Status: Acute Physician Certification - Certification Statement Physician Certification Statement: This is an acknowledgement statement that JOSE ELMORE is a 63 year old M who requires inpatient psychiatric admission for treatment which could reasonably be expected to improve the patient's condition for Schizophrenia Estimated period of time patient will need to remain in the hospital: 7 days Plan for post-hospital care: Out-patient care
[2019-06-03] MEDS: NORVASC PO SCH (16:29)
[2019-06-03] MEDS: HCTZ PO SCH (16:30)
[2019-06-03] MEDS: ATIVAN PO PRN (23:18)
[2019-06-03] MEDS: HALDOL PO PRN (23:18)
--- NOTE | 2019-06-04 10:08 | Consultation ---
History of Present Illness - Reason for Consult Consult date: 06/04/19 medical management - History of Present Illness The patient is a 63yo single disabled AAM with history of Paranoid Schizoph earlene, hypertension self presented with auditory hallucinations of voices telling him to kill himself, depressed mood, suicidal thoughts with plans to jump off the bridge. Patient was recently discharged from the hospital after being treated for the same. Medicine service has been consulted to evaluate for any medical need. Past History Past Medical History: hypertension Past Surgical History: No surgical history Social history: single (lives with brother, disabled, attended some College, no legal problems and access to guns) Family history: other (patient unable to verify) Medications and Allergies Allergies Allergy/AdvReac Type Severity Reaction Status Date / Time No Known Allergies Allergy Unverified 02/19/16 23:12 Home Medications Medication Instructions Recorded Confirmed Last Taken Type Benztropine [Cogentin] 0.5 mg PO BID 02/20/16 06/04/19 Unknown History [place] Carbonate 0 mg PO TID 02/20/16 06/04/19 Unknown History Oxycodone HCl [oxyCONTIN ER] 15 mg PO Q12HR 02/20/16 06/04/19 Unknown History amLODIPine [Norvasc] 10 mg PO QDAY 02/20/16 06/04/19 Unknown History hydroCHLOROthiazide [HCTZ] 12.5 mg PO QDAY 02/20/16 06/04/19 Unknown History risperiDONE [RisperDAL] 1 mg PO BID 30 Days #30 tablet 05/17/19 06/04/19 Unknown Rx Active Meds: Active Medications Amlodipine Besylate (Norvasc) 10 mg PO QDAY [facility] Last Admin: 06/03/19 16:29 Dose: 10 mg Documented by: Haloperidol (Haldol) 5 mg PO Q6H PRN PRN Reason: Agitation Last Admin: 06/03/19 23:18 Dose: 5 mg Documented by: Haloperidol Lactate (Haldol) 5 mg IM Q6H PRN PRN Reason: Agitation Hydrochlorothiazide (Hctz) 12.5 mg PO QDAY [facility] Last Admin: 06/03/19 16:30 Dose: 12.5 mg Documented by: Lorazepam (Ativan) 2 mg PO Q6H PRN PRN Reason: Agitation Last Admin: 06/03/19 23:18 Dose: 2 mg Documented by: Lorazepam (Ativan) 2 mg IM Q6H PRN PRN Reason: Agitation Review of Systems All systems: negative (hearing voices when he is alone) Exam - Physical Exam Narrative exam: GENERAL: well-developed and well-nourished white male lying on bed appeared to be in no discomfort. HEENT: Normocephalic. Atraumatic. No conjunctival congestion or icterus. Patient has moist mucous membranes. NECK: Supple. Trachea midline. CHEST/LUNGS: Clear to auscultated bilaterally, breathing nonlabored. No wheezes crackles or rhonchi. HEART/CARDIOVASCULAR: Regular in rate and rhythm. S1 and S2 positive. ABDOMEN: Abdomen is soft, nontender. Patient has normal bowel sounds. SKIN: There is no rash. Warm and dry. NEURO: No focal motor deficit. Follows command. MUSCULOSKELETAL: No joint effusion or tenderness. EXTRIMITY: No edema, no cyanosis or clubbing. PSYCH: Cooperative. - Constitutional Vitals: Temp Pulse Resp BP Pulse Ox 97.6 F 73 18 170/95 98 06/04/19 07:19 06/04/19 07:19 06/03/19 22:00 06/04/19 07:19 06/04/19 07:19 Results - Labs CBC & Chem 7: 06/03/19 10:28 06/03/19 10:28 Labs: Abnormal lab results 06/03/19 06/03/19 06/03/19 Range/Units 10:28 10:28 10:28 WBC 4.2 L (4.5-11.0) K/mm3 BUN 7 L (9-20) mg/dL Glucose 103 H (75-100) mg/dL TSH 0.253 L (0.270-4.200) mlU/mL Assessment and Plan Acute On chronic paranoid schizophrenia - Management per primary Hypertension, moderately controlled - We'll resume home meds, by mouth clonidine as needed if SBP greater than 160 Low TSH, free T4 level normal, we will need to repeat TSH and T4 level in 4-6 weeks DVT prophylaxis, Lovenox Call us back with any question or concerns
[2019-06-04] MEDS: HCTZ PO SCH (10:24)
[2019-06-04] MEDS: NORVASC PO SCH (10:25)
[2019-06-04] MEDS: ATIVAN PO PRN ×2 (10:32→21:03)
[2019-06-04] MEDS: HALDOL PO PRN ×2 (11:01→21:03)
[2019-06-04] MEDS ORDERED: CATAPRES PO PRN (15:03)
--- NOTE | 2019-06-04 21:03 | Progress Note ---
Subjective Date of service: 06/04/19 Principal diagnosis: Paranoid Schizophrenia Subjective Comment: Patient reports feeling depressed and suicidal. He endorses auditory hallucinations. Objective - Criteria for Continued Treatment Criteria for Continued Treatment: Improving Level of Functioning, Improving Emotional/Socia, Decreasing Frequency of Hospitalization - Mental Status Mental Status: Alert - Objective Observation Participation Level: Moderate Assessment and Plan - Patient Problems (1) Paranoid schizophrenia Current Visit: No Status: Acute Plan to address problem: Patient will be admitted for inpatient psychiatric evaluation, medication adjustment and close monitoring The patient's behavior, mood, sleep and appetite will be closely monitored. Patient will be enrolled in individual and group therapeutic sessions and encouraged to attend. Patient will be provided with a safe and structured environment. Patient's physical health needs will be addressed by the Hospitalist. Social Assessment will be completed and the Truck Driver Salesperson will work with patient and family to ensure a suitable and safe disposition Medication adjustment will be made as clinically indicated The patient agreed on the treatment plan, understood the risk, benefit, alternative treatment, potential consequence of no treatment, and gave informed consent. (2) Suicidal ideations Current Visit: No Status: Inactive
[2019-06-05] MEDS: ESKALITH PO SCH ×3 (00:41→23:28)
[2019-06-05] MEDS: RisperDAL PO SCH ×3 (00:43→23:29)
[2019-06-05] MEDS ORDERED: NORVASC PO SCH (10:00)
[2019-06-05] MEDS ORDERED: HCTZ PO SCH (10:00)
[2019-06-05] MEDS: NORVASC PO SCH (11:14)
[2019-06-05] MEDS: HCTZ PO SCH (11:15)
[2019-06-05] MEDS: ATIVAN PO PRN (16:31)
[2019-06-05] MEDS: HALDOL PO PRN (16:31)
[2019-06-05] MEDS: LOVENOX SUB-Q SCH (23:29)
[2019-06-06] MEDS: RisperDAL PO SCH ×2 (11:40→22:13)
[2019-06-06] MEDS: ESKALITH PO SCH ×2 (11:40→22:13)
[2019-06-06] MEDS: NORVASC PO SCH (11:41)
[2019-06-06] MEDS: HCTZ PO SCH (11:43)
--- NOTE | 2019-06-06 20:27 | Progress Note ---
Subjective Date of service: 06/05/19 Principal diagnosis: Paranoid Schizophrenia Subjective Comment: Patient reports feeling depressed, endorses auditory hallucinations but denies being suicidal or homicidal. He is compliant with his medications and denies side effects. He sleeps and eats well. Objective - Criteria for Continued Treatment Criteria for Continued Treatment: Improving Level of Functioning, Improving Treatment / Medication Compliance, Improving Emotional/Socia, Decreasing Frequency of Hospitalization - Mental Status Mental Status: Alert - Objective Observation Participation Level: Moderate Assessment and Plan - Patient Problems (1) Paranoid schizophrenia Current Visit: No Status: Acute Plan to address problem: Patient will be admitted for inpatient psychiatric evaluation, medication adjustment and close monitoring The patient's behavior, mood, sleep and appetite will be closely monitored. Patient will be enrolled in individual and group therapeutic sessions and encouraged to attend. Patient will be provided with a safe and structured environment. Patient's physical health needs will be addressed by the Hospitalist. Social Assessment will be completed and the Casino Floor Walker will work with patient and family to ensure a suitable and safe disposition Medication adjustment will be made as clinically indicated The patient agreed on the treatment plan, understood the risk, benefit, alternative treatment, potential consequence of no treatment, and gave informed consent. (2) Suicidal ideations Current Visit: No Status: Inactive
--- NOTE | 2019-06-06 20:31 | Progress Note ---
Subjective Date of service: 06/06/19 Principal diagnosis: Paranoid Schizophrenia Subjective Comment: Patient reports improved mood, denies being suicidal or homicidal. No hallucinations/paranoia. He is compliant with his medications and denies side effects. He sleeps and eats well. Will discharge in am if he continues to do well. Objective - Criteria for Continued Treatment Criteria for Continued Treatment: Stablizing Level of Functioning - Mental Status Mental Status: Alert - Objective Observation Participation Level: Full Assessment and Plan - Patient Problems (1) Paranoid schizophrenia Current Visit: No Status: Acute Plan to address problem: Patient will be admitted for inpatient psychiatric evaluation, medication adjustment and close monitoring The patient's behavior, mood, sleep and appetite will be closely monitored. Patient will be enrolled in individual and group therapeutic sessions and encouraged to attend. Patient will be provided with a safe and structured environment. Patient's physical health needs will be addressed by the Hospitalist. Social Assessment will be completed and the Customer Acquisition Specialist will work with patient and family to ensure a suitable and safe disposition Medication adjustment will be made as clinically indicated The patient agreed on the treatment plan, understood the risk, benefit, alternative treatment, potential consequence of no treatment, and gave informed consent. (2) Suicidal ideations Current Visit: No Status: Inactive
[2019-06-06] MEDS: LOVENOX SUB-Q SCH (22:14)
--- NOTE | 2019-06-07 08:18 | Discharge Summary ---
Providers - Providers Date of Admission: 06/03/19 06:34 Date of discharge: 06/07/19 Attending physician: HANNA PROCTOR MD 06/03/19 07:01 Consult to Case Management [CONS] Routine Services Needed at Discharge: Physical Therapy Notified:: FACILITIES ENGINEER [facility] Reason for admission: auditory hallucinations, depressed mood, suicidal thoughts with plans Condition: Stable Hospital course: The patient was provided inpatient psychiatric treatment with safe and supportive environment, group therapy, individual counseling, psychiatric medication, medication adjustment, adverse effect monitor, medical evaluation, medical treatment, social service assessment, family/social support meeting, placement assessment and psycho-education. The patients mood, anxiety, thoughts, stress management skill, cognition, impulse/anger control, motivation, understanding of disease, compliance to treatment and appreciation on family/social support are improved and stabilized. At the time of discharge, the patient had no suicidal ideas, no homicidal ideas, no aggressive thoughts, no endangering behavior and no debilitating adverse effects. The patient agreed on the treatment plan, understood the risk, benefit, alternative treatment, potential consequence of no treatment, and gave informed consent. The patient was advised to be compliant with medications, not to use drugs and not to drink alcohol. The patient understands that if suicidal ideas, homicidal ideas, or any endangering thoughts arise, the patient should immediately seek for emergent assistance including but not limited to crisis hot line and emergency room. Follow up with out-patient Psychiatrist and PCP within 14 - 21 days of discharge. Disposition: - TO HOME OR SELFCARE Allergies/Adverse Reactions: Allergies No Known Allergies Allergy (Unverified 02/19/16 23:12) Vital Signs: Last Vital Signs Temp 97.6 F 06/06/19 10:00 Pulse 96 H 06/06/19 11:41 Resp 16 06/06/19 10:00 BP 117/72 06/06/19 11:41 Pulse Ox 96 06/06/19 10:00 Last Lab: Laboratory Last Values WBC 4.2 K/mm3 (4.5-11.0) L 06/03/19 10:28 RBC 4.69 M/mm3 (3.65-5.03) 06/03/19 10:28 Hgb 14.6 gm/dl (11.8-15.2) 06/03/19 10:28 Hct 42.6 % (35.5-45.6) 06/03/19 10:28 MCV 91 fl (84-94) 06/03/19 10:28 MCH 31 pg (28-32) 06/03/19 10:28 MCHC 34 % (32-34) 06/03/19 10:28 RDW 15.2 % (13.2-15.2) 06/03/19 10:28 Plt Count 294 K/mm3 (140-440) 06/03/19 10:28 Lymph % (Auto) 27.6 % (13.4-35.0) 06/03/19 10:28 [place] % (Auto) 6.8 % (0.0-7.3) 06/03/19 10:28 Eos % (Auto) 4.2 % (0.0-4.3) 06/03/19 10:28 Baso % (Auto) 0.8 % (0.0-1.8) 06/03/19 10:28 Lymph # 1.2 K/mm3 (1.2-5.4) 06/03/19 10:28 [place] # 0.3 K/mm3 (0.0-0.8) 06/03/19 10:28 Eos # 0.2 K/mm3 (0.0-0.4) 06/03/19 10:28 Baso # 0.0 K/mm3 (0.0-0.1) 06/03/19 10:28 Seg Neutrophils % 60.6 % (40.0-70.0) 06/03/19 10:28 Seg Neutrophils # 2.5 K/mm3 (1.8-7.7) 06/03/19 10:28 Sodium 140 mmol/L (137-145) 06/03/19 10:28 Potassium 4.8 mmol/L (3.6-5.0) 06/03/19 10:28 Chloride 103.6 mmol/L (98-107) 06/03/19 10:28 Carbon Dioxide 25 mmol/L (22-30) 06/03/19 10:28 16 mmol/L 06/03/19 10:28 BUN 7 mg/dL (9-20) L 06/03/19 10:28 0.9 mg/dL (0.8-1.5) 06/03/19 10:28 Estimated GFR > 60 ml/min 06/03/19 10:28 8 % 06/03/19 10:28 Glucose 103 mg/dL (75-100) H 06/03/19 10:28 5.6 % (4-6) 06/03/19 10:28 Calcium 9.3 mg/dL (8.4-10.2) 06/03/19 10:28 0.40 mg/dL (0.1-1.2) 06/03/19 10:28 AST 16 units/L (5-40) 06/03/19 10:28 ALT 10 units/L (7-56) 06/03/19 10:28 96 units/L (35-129) 06/03/19 10:28 7.4 g/dL (6.3-8.2) 06/03/19 10:28 4.2 g/dL (3.9-5) 06/03/19 10:28 1.3 % 06/03/19 10:28 Triglycerides 57 mg/dL (2-149) 06/03/19 10:28 Cholesterol 124 mg/dL (50-199) 06/03/19 10:28 60 mg/dL (50-130) 06/03/19 10:28 56 mg/dL (40-59) 06/03/19 10:28 2.21 % 06/03/19 10:28 TSH 0.253 mlU/mL (0.270-4.200) L 06/03/19 10:28 Free T4 1.19 ng/dL (0.76-1.46) 06/04/19 15:20 - Discharge Diagnoses (1) Paranoid schizophrenia Status: Acute (2) Suicidal ideations Status: Inactive Core Measure Documentation - Palliative Care Palliative Care/ Comfort Measures: Not Applicable - Core Measures Any of the following diagnoses?: none Exam - Constitutional Vitals: Temp Pulse Resp BP Pulse Ox 97.6 F 96 H 16 117/72 96 06/06/19 10:00 06/06/19 11:41 06/06/19 10:00 06/06/19 11:41 06/06/19 10:00 General appearance: Present: no acute distress, well-nourished - EENT Eyes: Present: PERRL ENT: hearing intact, clear oral mucosa - Neck Neck: Present: supple, normal ROM - Respiratory Respiratory effort: normal Plan Activity: no restrictions Weight Bearing Status: Full Weight Bearing Follow up with: RIZWANA GROSS MD [Primary Care Provider] - 7 Days Prescriptions: [place] Carbonate [Eskalith] 600 mg PO BID #60 capsule risperiDONE [RisperDAL] 1 mg PO BID #60 tablet
[2019-06-07 10:41] VITALS: BP 150/96
[2019-06-07] MEDS: NORVASC PO SCH (11:03)
[2019-06-07] MEDS: HCTZ PO SCH (11:04)
[2019-06-07] MEDS: ESKALITH PO SCH (11:04)
[2019-06-07] MEDS: RisperDAL PO SCH (11:05)
== END 2019-06-07 18:15 | disposition home or self-care (01) | DRG 885 ==
LOC: 5A 06:34
PROVIDERS: ADMIT Psychiatry & Neurology Psychiatry; ATTEND Psychiatry & Neurology Psychiatry
DX: F20.0 Paranoid schizophrenia (principal); I10 Essential (primary) hypertension; F32.9 Major depressive disorder, single episode, unspecified
CPT/HCPCS: 36415; 80048; 80053; 80061; 80178; 80307; 80320; 81001; 83036; 84439; 84443; 85025; 93005; 93010; G0378; G0480